=== PATIENT | male | born 1965 | race African-American/Black ===

== ENCOUNTER 2021-07-12 07:59 | Emergency (ER) | payer BC, OTHER, SELFPAY ==
[2021-07-12 10:03] LABS: SARS-CoV-2 NAA Rapid Test DETECTED (NotDetected)
== END 2021-07-12 08:59 | disposition home or self-care (01) ==
LOC: CSHERS 07:59
DX: U07.1 COVID-19 (principal)
CPT/HCPCS: 99283; U0002

== ENCOUNTER 2022-05-01 17:11 | Emergency (ER) | payer BC ==
[2022-05-01] MEDS ORDERED: HYDROcodone/Acetaminophen 5/325 mg Tablet ONE (18:18)
[2022-05-01 18:50] LABS: #Basophils 0.1 10x3/uL (0.0-0.2); #Eosinphils 0.2 10x3/uL (0.0-0.5); #Monocytes 0.9 10x3/uL (0.0-1.1); #Neutrophils 7.1 10x3/uL (1.5-8.4); %Basophils 0.5 % (0.0-2.0); %Eosinophils 1.6 % (0.0-6.0); %Lymphocytes 20.7 % (18.0-47.0); %Monocytes 8.6 % (0.0-10.0); %Neutrophils 68.2 % (40.0-75.0); Hemoglobin 13.7 g/dL (13.5-17.5); Mean Corpuscular Hemoglobin 27.6 pg (27.0-33.0); Mean Corpuscular Volume 83.7 fl (81.2-95.1); Mean Platelet Volume 10.4 fl (7.4-10.4); Platelet Count 268 10x3/uL (150-450); RBC Distribution Width 13.8 % (11.5-14.5); Red Blood Cell (RBC) Count 4.96 10x6/uL (4.32-5.72); White Blood Cell (WBC) Count 10.5 10x3/uL (3.5-10.5)
[2022-05-01 19:06] LABS: ALT (SGPT) 36 U/L (8-55); AST (SGOT) 30 U/L (5-34); Albumin 4.4 g/dL (3.5-5.0); Alkaline Phosphatase 110 U/L (40-110); Anion Gap 13 mmol/L (10-20); BUN (Urea Nitrogen) 12 mg/dL (8.4-25.7); Bilirubin, Total 0.4 mg/dL (0.2-1.2); CRP (Inflammatory) 2.58 mg/dL (= or < 0.5); Calc. Creatinine Clearance 0 mL/min (70-130); Calcium 9.6 mg/dL (7.8-10.44); Carbon Dioxide 23 mmol/L (22-29); Chloride 106 mmol/L (98-107); Estimated GFR 61; Globulin 3.8 g/dL (2.4-3.5); Glucose 138 mg/dL (70-105); Protein, Total 8.2 g/dL (6.0-8.3); Sodium 138 mmol/L (136-145)
== END 2022-05-01 21:12 | disposition home or self-care (01) ==
LOC: CSHERS 17:11
DX: L03.114 Cellulitis of left upper limb (principal)
CPT/HCPCS: 36415; 80053; 85025; 86140

== ENCOUNTER 2023-03-20 18:13 | Emergency (ER) | payer BC ==
[2023-03-20 18:52] LABS: #Basophils 0.1 10x3/uL (0.0-0.2); #Eosinphils 0.1 10x3/uL (0.0-0.5); #Monocytes 0.7 10x3/uL (0.0-1.1); #Neutrophils 7.7 10x3/uL (1.5-8.4); %Basophils 0.6 % (0.0-2.0); %Eosinophils 1.3 % (0.0-6.0); %Lymphocytes 20.4 % (18.0-47.0); %Monocytes 6.6 % (0.0-10.0); %Neutrophils 70.8 % (40.0-75.0); Hematocrit 40.3 % (38.8-50.0); Hemoglobin 13.7 g/dL (13.5-17.5); Mean Corpuscular Hemoglobin 27.5 pg (27.0-33.0); Mean Corpuscular Volume 80.8 fl (81.2-95.1); Platelet Count 255 10x3/uL (150-450); RBC Distribution Width 12.8 % (11.5-14.5); Red Blood Cell (RBC) Count 4.99 10x6/uL (4.32-5.72); White Blood Cell (WBC) Count 10.8 10x3/uL (3.5-10.5)
[2023-03-20 19:11] LABS: ALT (SGPT) 57 U/L (8-55); AST (SGOT) 74 U/L (5-34); Albumin 4.2 g/dL (3.5-5.0); Alkaline Phosphatase 176 U/L (40-110); Anion Gap 15 mmol/L (10-20); BUN (Urea Nitrogen) 18 mg/dL (8.4-25.7); Bilirubin, Total 0.6 mg/dL (0.2-1.2); Calc. Creatinine Clearance 0 mL/min (70-130); Calcium 9.6 mg/dL (7.8-10.44); Carbon Dioxide 23 mmol/L (22-29); Chloride 95 mmol/L (98-107); Estimated GFR 51; Globulin 3.5 g/dL (2.4-3.5); Potassium 4.2 mmol/L (3.5-5.1); Protein, Total 7.7 g/dL (6.0-8.3); Sodium 129 mmol/L (136-145)
[2023-03-20 19:13] LABS: Glucose 627 mg/dL (70-105)
[2023-03-20] MEDS ORDERED: Insulin Regular 300 UNITS/3 ML VIAL ONE (19:25)
== END 2023-03-20 22:30 | disposition home or self-care (01) ==
LOC: CSHERS 18:13
DX: R63.1 Polydipsia (principal); R73.9 Hyperglycemia, unspecified
CPT/HCPCS: 36416; 80053; 85025; 93005; 96361; 96374; J1815